=== PATIENT | male | born 1990 | race Two or more races ===

== ENCOUNTER 2021-05-17 08:58 | Emergency (ER) | payer OTHER ==
[~2021-05-17] VITALS: Ht 170.2 cm; Wt 73.5 kg
== END 2021-05-17 14:43 | disposition home or self-care (01) ==
LOC: ER 08:58
DX: B34.9 Viral infection, unspecified (principal); J11.1 Influenza due to unidentified influenza virus with other respiratory manifestations; K75.9 Inflammatory liver disease, unspecified